=== PATIENT | female | born 1960 | race Caucasian/White ===

== ENCOUNTER 2018-12-29 00:24 | Emergency (ER) ==
[2018-12-29 00:35] VITALS: Ht 157.5 cm; Wt 67.3 kg
[2018-12-29] MEDS ORDERED: LOVASTATIN20 MG PO (00:37)
[2018-12-29] MEDS ORDERED: KLOR-CON M2020 MEQ PO (00:37)
[2018-12-29] MEDS ORDERED: COREG 3.1253.125 MG PO (00:38)
[2018-12-29] MEDS ORDERED: TRIAMTERENE (00:38)
[2018-12-29] MEDS ORDERED: TAMIFLU75 MG PO (01:50)
== END 2018-12-29 02:02 | disposition home or self-care (01) ==
LOC: D.ER 00:24
DX: J11.1 Influenza due to unidentified influenza virus with other respiratory manifestations (principal); R68.83 Chills (without fever)

== ENCOUNTER → 2020-07-18 | Emergency (ER) | payer SELFPAY ==
[2018-12-29 00:35] VITALS: BMI 27.1
[~2020-07-18] MED LIST: COREG 3.1253.125 MG PO; KLOR-CON M2020 MEQ PO; LOVASTATIN20 MG PO; TAMIFLU75 MG PO; TRIAMTERENE
== END | disposition home or self-care (01) ==
LOC: D.ER 12:19
DX: R52 Pain, unspecified (principal)